=== PATIENT | female | born 1995 | race Caucasian/White ===

== ENCOUNTER 2017-08-04 21:06 | Emergency (ER) | payer MEDICAID ==
[2017-08-04 21:21] VITALS: BP 149/85; PULSE 73; RESP 16; TEMP 99; O2SAT 95
[2017-08-04] MEDS ORDERED: HYDROCOD/APAP 5/325 PREPACK#6 BTL TAKEHOME ONE (21:29)
--- NOTE | 2017-08-04 21:33 | EDPHY ---
H & P Stated Complaint: L lower tooth/jaw pain since 2029 after temp filling came out. 01/20 pain. Time Seen by Provider: 08/04/17 21:25 HPI/ROS: CHIEF COMPLAINT: Dental pain HISTORY OF PRESENT ILLNESS: Patient is a 22-year-old female who comes to the emergency department complaining dental pain. She had a temporary filling placed in April anti night while eating it she repair any it fell out. She has had pain with cold water and air in it since. No swelling. No fever. REVIEW OF SYSTEMS: Constitutional: denies: chills, fever, recent illness, recent injury EENTM: See HPI denies: blurred vision, double vision, nose congestion Respiratory: denies: cough, shortness of breath Cardiac: denies: chest pain, irregular heart rate, lightheadedness, palpitations Gastrointestinal/Abdominal: denies: abdominal pain, diarrhea, nausea, vomiting, blood streaked stools Genitourinary: denies: dysuria, frequency, hematuria, pain Musculoskeletal: denies: joint pain, muscle pain Skin: denies: lesions, rash, jaundice, bruising Neurological: denies: headache, numbness, paresthesia, tingling, dizziness, weakness Hematologic/Lymphatic: denies: blood clots, easy bleeding, easy bruising Immunologic/allergic: denies: HIV/AIDS, transplant EXAM: GENERAL: Well-appearing, well-nourished and in no acute distress. HEAD: Atraumatic, normocephalic. EYES: Pupils equal round and reactive to light, extraocular movements intact, sclera anicteric, conjunctiva are normal. ENT: Left left lower molar with whole where feeling fell out. No significant swelling or erythema. No bleeding. TMs normal, nares patent, oropharynx clear without exudates. Moist mucous membranes. NECK: Normal range of motion, supple without lymphadenopathy or JVD. LUNGS: Breath sounds clear to auscultation bilaterally and equal. No wheezes rales or rhonchi. HEART: Regular rate and rhythm without murmurs, rubs or gallops. ABDOMEN: Soft, nontender, normoactive bowel sounds. No guarding, no rebound. No masses appreciated. BACK: No CVA tenderness, no spinal tenderness, step-offs or deformities EXTREMITIES: Normal range of motion, no pitting or edema. No clubbing or cyanosis. NEUROLOGICAL: Cranial nerves II through XII grossly intact. Normal speech, normal gait. 5/5 strength, normal movement in all extremities, normal sensation PSYCH: Normal mood, normal affect. SKIN: Warm, dry, normal turgor, no visible rashes or lesions. Source: Patient Exam Limitations: No limitations - Personal History LMP (Females 10-55): 15-21 Days Ago Current Tetanus Diphtheria and Acellular Pertussis (TDAP): Yes - Medical/Surgical History Hx Asthma: No Hx Chronic Respiratory Disease: No Hx Diabetes: No Hx Cardiac Disease: No Hx Renal Disease: No Hx Cirrhosis: No Hx Alcoholism: No Hx HIV/AIDS: No Hx Splenectomy or Spleen Trauma: No Other PMH: psychosis - Family History Significant Family History: No pertinent family hx - Social History Smoking Status: Current every day smoker Alcohol Use: Sober Drug Use: None Constitutional: Initial Vital Signs Temperature (C) 37.2 C 08/04/17 21:18 Heart Rate 73 08/04/17 21:18 Respiratory Rate 16 08/04/17 21:18 Blood Pressure 149/85 H 08/04/17 21:18 O2 Sat (%) 95 08/04/17 21:18 O2 Delivery Mode Room Air Allergies/Adverse Reactions: No Known Allergies Allergy (Unverified 08/04/17 21:17) Home Medications: Medication Instructions Recorded ARIPiprazole [Abilify 5 mg (*)] 08/04/17 Medical Decision Making ED Course/Re-evaluation: The patient has a feeling that his fallen out that he has to be replaced by a dentist. She has neglected for several months now. I will refer her to dental aid. I have called and left a message with her office. She may also follow up with a dentist of her choice. I encouraged her to do so tomorrow. There is no need at this point for antibiotics. I will give her Vicodin and having discussed [id number] numbing medications. Differential Diagnosis: Partial list of the Differential diagnosis considered include but were not limited to; dental fracture, adarsh, abscess and although unlikely based on the history and physical exam, I also considered parotid duct stone, mandible injury. I discussed these differential diagnoses and the plan with the patient as well as the usual and expected course. The patient understands that the diagnosis is provisional and that in medicine we are not always correct and that further workup is often warranted. Usual and customary warnings were given. All of the patient's questions were answered. The patient was instructed to return to the emergency department should the symptoms at all worsen or return, otherwise to followup with the physician as we discussed. - Data Points Medications Given: Discontinued Medications Hydrocodone Bitart/Acetaminophen (Dalzell 5/325mg Prepack#6) 1 btl TAKEHOME EDNOW ONE Stop: 08/04/17 21:30 Last Admin: 08/04/17 21:48 Dose: 1 btl Departure - Departure Disposition: Home, Routine, Self-Care Clinical Impression: Pain, dental Condition: Fair Instructions: Hydrocodone/Acetaminophen (By mouth), Toothache (ED) Additional Instructions: Follow-up tomorrow with dental aid or your private dentist. I have left a message with dental aid to see you. Referrals: Patient,NotPresent [Primary Care Provider] - As per Instructions
== END 2017-08-04 21:53 | disposition home or self-care (01) ==
LOC: CED 21:06
DX: K08.89 Other specified disorders of teeth and supporting structures (principal); F17.200 Nicotine dependence, unspecified, uncomplicated

== ENCOUNTER 2017-09-11 12:23 | Emergency (ER) | payer MEDICAID ==
--- NOTE | 2017-09-11 13:04 | EDPHY ---
H & P Stated Complaint: Vaginal Bleeding, cramping Time Seen by Provider: 09/11/17 12:48 HPI/ROS: CHIEF COMPLAINT: "I think I am having a miscarriage" HISTORY OF PRESENT ILLNESS: 22-year-old female TAB1 currently approximately 4 weeks based on last menstrual, positive home test 4 days ago, started experiencing spotting and passage of clots since yesterday as well as mild suprapubic cramping. No back or flank pain. No urinary abnormality. No trauma. No fever or chills. No flu-like symptoms. REVIEW OF SYSTEMS: A ten point review of systems was performed and is negative with the exception of the items mentioned in the HPI PAST MEDICAL & SURGICAL HISTORY: TAB1, No IVF history SOCIAL HISTORY:Nonsmoker PHYSICAL EXAM (Prior to examination, patient consented to physical exam, hands were washed and my usual and customary physical exam procedures followed) 1) GENERAL: Well-developed, well-nourished, alert and oriented. Appears to be in no acute distress. 2) HEAD: Normocephalic, atraumatic 3) HEENT: Pupils equal, round, reactive to light bilaterally. Sclera anicteric. 4) NECK: Full range of motion, no meningeal signs. 5) LUNGS: Clear auscultation bilaterally, no wheezes, no rhonchi, no retractions. 6) HEART: Regular rate and rhythm, no murmur, no heave, no gallop. 7) ABDOMEN: No guarding, no rebound, no focal tenderness, negative McBurney's, negative Hayden's, negative Rovsing's, negative peritoneal sign, unable to elicit any abdominal pain on exam 8) MUSCULOSKELETAL: Moving all extremities, no focal areas of tenderness, no obvious trauma. No peripheral edema or discoloration. 9) BACK: No CVA tenderness, no midline vertebral tenderness, no fluctuance, no step-off, no obvious trauma, no visual or palpable abnormality. 10) SKIN: No rash, no petechiae. 11) Psychiatric: Patient is oriented X 3, there is no agitation. DIFFERENTIAL DIAGNOSIS: In no particular order including but not limited to threatened , completed , ectopic - Personal History LMP (Females 10-55): Current Tetanus/Diphtheria Vaccine: Yes Current Tetanus Diphtheria and Acellular Pertussis (TDAP): Yes - Medical/Surgical History Hx Asthma: No Hx Chronic Respiratory Disease: No Hx Diabetes: No Hx Cardiac Disease: No Hx Renal Disease: No Hx Cirrhosis: No Hx Alcoholism: No Hx HIV/AIDS: No Hx Splenectomy or Spleen Trauma: No Other PMH: psychosis, - Social History Smoking Status: Current every day smoker Constitutional: Initial Vital Signs Temperature (C) 36.6 C 09/11/17 12:35 Heart Rate 101 H 09/11/17 12:35 Respiratory Rate 18 09/11/17 12:35 Blood Pressure 130/91 H 09/11/17 12:35 O2 Sat (%) 92 09/11/17 12:35 O2 Delivery Mode Room Air Allergies/Adverse Reactions: No Known Allergies Allergy (Unverified 08/04/17 21:17) Home Medications: Medication Instructions Recorded ARIPiprazole [Abilify 5 mg (*)] 08/04/17 Medical Decision Making - Diagnostics Imaging Results: Imaging Impressions Pelvic/Renal Ultrasound 09/11/17 13:01 Impression: Normal ultrasound pelvis. Findings and recommendations discussed with Emergency Department physicianManjeet PAC at 13:54 hour, 09/11/2017. Final report concurs with initial preliminary interpretation. Images reviewed by myself ED Course/Re-evaluation: 1:47 p.m.: Patient's test is negative. Ultrasound had already been performed 2:00 p.m.: Re-evaluation. Discussed with patient her negative test. Plan will be discharge. Recommend she stay compliant with oral contraceptive that she states that she is not trying to get . Doubt acute surgical abdominal pathology. Doubt acute appendicitis absence of abdominal pain on palpation. Patient feels comfortable being discharged. Usual and customary discharge precautions instructions provided. Care of patient under supervision of secondary supervising physician Dr Hung. - Data Points Laboratory Results: Laboratory Results 09/11/17 13:09 09/11/17 13:00 09/11/17 09/11/17 09/11/17 13:35 13:09 13:09 WBC RBC Hgb Hct MCV MCH MCHC RDW Plt Count MPV Neut % (Auto) Lymph % (Auto) [place] % (Auto) Eos % (Auto) Baso % (Auto) Nucleat RBC Rel Count Absolute Neuts (auto) Absolute Lymphs (auto) Absolute Monos (auto) Absolute Eos (auto) Absolute Basos (auto) Absolute Nucleated RBC Immature Gran % Immature Gran # Sodium Potassium Chloride Carbon Dioxide Anion Gap BUN Creatinine Estimated GFR Glucose Calcium Beta HCG, Qual NEGATIVE Beta HCG, Quant Urine Color YELLOW Urine Appearance HAZY Urine pH 6.0 (5.0-7.5) Ur Specific [place] 1.014 (1.002-1.030) Urine Protein NEGATIVE (NEGATIVE) Urine Ketones NEGATIVE (NEGATIVE) Urine Blood 3+ H (NEGATIVE) Urine Nitrate NEGATIVE (NEGATIVE) Urine Bilirubin NEGATIVE (NEGATIVE) Urine Urobilinogen NEGATIVE EU EU (0.2-1.0) Ur Leukocyte Esterase NEGATIVE (NEGATIVE) Urine RBC 50-182 /hpf H /hpf (0-3) Urine WBC 3-5 /hpf H /hpf (0-3) Ur Epithelial Cells 2+ /lpf H /lpf (NONE-1+) Urine Bacteria TRACE /hpf H /hpf (NONE SEEN) Urine Mucus TRACE /lpf /lpf (NONE-1+) Urine Glucose NEGATIVE (NEGATIVE) Patient ABO/Rh A POSITIVE 09/11/17 09/11/17 13:09 13:00 WBC 9.83 10^3/uL H 10^3/uL (3.80-9.50) RBC 5.16 10^6/uL 10^6/uL (4.18-5.33) Hgb 16.2 g/dL g/dL (12.6-16.3) Hct 46.5 % % (38.0-47.0) MCV 90.1 fL fL (81.5-99.8) MCH 31.4 pg pg (27.9-34.1) MCHC 34.8 g/dL g/dL (32.4-36.7) RDW 12.3 % % (11.5-15.2) Plt Count 297 10^3/uL 10^3/uL (150-400) MPV 10.7 fL fL (8.7-11.7) Neut % (Auto) 73.0 % % (39.3-74.2) Lymph % (Auto) 21.2 % % (15.0-45.0) [place] % (Auto) 4.9 % % (4.5-13.0) Eos % (Auto) 0.2 % L % (0.6-7.6) Baso % (Auto) 0.3 % % (0.3-1.7) Nucleat RBC Rel Count 0.0 % % (0.0-0.2) Absolute Neuts (auto) 7.18 10^3/uL H 10^3/uL (1.70-6.50) Absolute Lymphs (auto) 2.08 10^3/uL 10^3/uL (1.00-3.00) Absolute Monos (auto) 0.48 10^3/uL 10^3/uL (0.30-0.80) Absolute Eos (auto) 0.02 10^3/uL L 10^3/uL (0.03-0.40) Absolute Basos (auto) 0.03 10^3/uL 10^3/uL (0.02-0.10) Absolute Nucleated RBC 0.00 10^3/uL 10^3/uL (0-0.01) Immature Gran % 0.4 % % (0.0-1.1) Immature Gran # 0.04 10^3/uL 10^3/uL (0.00-0.10) Sodium 140 mEq/L mEq/L (135-145) Potassium 4.2 mEq/L mEq/L (3.5-5.2) Chloride 102 mEq/L mEq/L (97-110) Carbon Dioxide 24 mEq/l mEq/l (22-31) Anion Gap 14 mEq/L mEq/L (8-16) BUN 8 mg/dL mg/dL (7-23) Creatinine 0.6 mg/dL mg/dL (0.6-1.0) Estimated GFR > 60 Glucose 97 mg/dL mg/dL (70-100) Calcium 9.6 mg/dL mg/dL (8.5-10.4) Beta HCG, Qual Beta HCG, Quant < 2.39 mIU/mL mIU/mL (0.00-4.83) Urine Color Urine Appearance Urine pH Ur Specific [place] Urine Protein Urine Ketones Urine Blood Urine Nitrate Urine Bilirubin Urine Urobilinogen Ur Leukocyte Esterase Urine RBC Urine WBC Ur Epithelial Cells Urine Bacteria Urine Mucus Urine Glucose Patient ABO/Rh Departure - Departure Disposition: Home, Routine, Self-Care Clinical Impression: Menstrual periods, abnormal Condition: Good Instructions: Dysmenorrhea (ED) Additional Instructions: Return to the ER if you develop abdominal pain, back pain or any other symptoms that concern you. Unless you are trying to get , please take your oral control pills as directed. Referrals: [facility],. [Clinic] - As per Instructions
[2017-09-11 13:25] LABS: PLATELET COUNT 297 10^3/uL (150-400)
[2017-09-11 14:16] VITALS: BP 104/84
== END 2017-09-11 14:16 | disposition home or self-care (01) ==
DX: N93.9 Abnormal uterine and vaginal bleeding, unspecified (principal); F17.200 Nicotine dependence, unspecified, uncomplicated